=== PATIENT | male | born 1985 | race Two or more races ===

== ENCOUNTER 2025-05-08 15:42 | Emergency (ER) | payer MEDICAID, OTHER ==
[~2025-05-08] VITALS: Ht 185.4 cm; Wt 86.0 kg
[2025-05-08] MEDS: SODIUM CHLORIDE 0.9% 1,000 ML IVB ONE (16:15)
[2025-05-08 16:25] LABS: Hematocrit 41.0 % (41.0-53.0); Hemoglobin 14.1 g/dL (13.5-17.5); Mean Corpuscular Hemoglobin 28.7 pg (28.0-32.0); Mean Corpuscular Volume 83.3 fL (80.0-100.0); Nucleated Red Blood Cells % 0.0 %
[2025-05-08 16:37] LABS: Chloride 105 mmol/L (98-107); Potassium 3.8 mmol/L (3.5-5.1)
--- NOTE | 2025-05-08 16:37 | ED.PDOC ---
GI ASSESSMENT HPI Comments This is a 39 year old male presenting to the ED with chief complaint of abdominal pain. Patient reports that he has been experiencing epigastric abdominal pain for the past few days, believing that he is having a chronic pancreatitis flare up. Patient relays that he was seen at [facility], where labs and a CT confirmed chronic pancreatitis, but patient was sent home with pain medication. Patient states he has continued to experience pain since then, wanting to be placed on an NPO diet. 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 Patient denies any N/V/D, fever, or chills. Chief Complaint: Abdominal Pain Time Seen by MD: 16:34 Reviewed Notes: Nurses Notes, Medications, Allergies Allergies: Coded Allergies: Hydrocodone (Verified Allergy, Unknown, 05/08/25) Morphine (Verified Allergy, Unknown, 05/08/25) Naproxen (Verified Allergy, Unknown, 05/08/25) Information Source: Patient Mode of Arrival: Ambulatory Timing: Days Duration: Since onset Prehospital treatment: None Quality: Sharp Vomitus: None Stool: Normal Severity: Moderate Recent: None Recent Hx of: None Pain Location: Epigastric Modifying Factors: Nothing Associated sign and symptoms: Abdominal Pain Past Medical History Past Medical History (Other): Chronic pancreatitis Surgical History (Other): Pancreatic stent placement and removal Family History Family History: Reviewed,noncontributory to illness Social History Smoker: Non-Smoker Alcohol: Sober Drugs: Denies Drug Use Lives In: Home Constitutional: denies: chills, diaphoresis, fatigue, fever, malaise, sweats, weakness, others EENTM: denies: blurred vision, double vision, ear bleeding, ear discharge, ear drainage, ear pain, ear ringing, eye pain, eye redness, hearing loss, mouth pain, mouth swelling, nasal discharge, nose bleeding, nose congestion, nose pain, photophobia, tearing, throat pain, throat swelling, voice changes, others Respiratory: denies: cough, hemoptysis, orthopnea, SOB at rest, shortness of breath, SOB with excertion, stridor, wheezing, others Cardiovascular: denies: chest pain, dizzy spells, diaphoresis, Dyspnea on exertion, edema, irregular heart beat, left arm pain, lightheadedness, palpitations, PND, syncope, others Gastrointestinal: reports: abdominal pain; denies: abdomen distended, blood s treaked bowels, constipated, diarrhea, dysphagia, difficulty swallowing, hematemesis, melena, nausea, poor appetite, poor fluid intake, rectal bleeding, rectal pain, vomiting, others Genitourinary: denies: burning, dysuria, flank pain, frequency, hematuria, incontinence, penile discharge, penile sore, pain, testicle pain, testicle swelling, urgency, others Neurological: denies: dizziness, fainting, headache, left sided numbness, left sided weakness, numbness, paresthesia, pre-existing deficit, right sided numbness, right sided weakness, seizure, speech problems, tingling, tremors, weakness, others Musculoskeletal: denies: back pain, gout, joint pain, joint swelling, muscle pain, muscle stiffness, neck pain, others Integumetry: denies: bruises, change in color, change in hair/nails, dryness, laceration, lesions, lumps, rash, wounds, others Allergic/Immunocompromised: denies: Difficulty Healing, Frequent Infections, Hives, Itching, others Hematologic/Lymphatic: denies: anemia, blood clots, easy bleeding, easy bruising, swollen glands, others Endocrine: denies: excessive hunger, excessive sweating, excessive thirst, excessive urination, flushing, intolerance to cold, intolerance to heat, unexplained weight gain, unexplained weight loss, others Psychiatric: denies: anxiety, bipolar disorder, depression, hopeless, panic disorder, schizophrenia, sleepless, suicidal, others All Other Systems: Reviewed and Negative Physical Exam General Appearance: Moderate Distress, Normal HEENT: Normal ENT Inspection, PERRL/EOMI, Pharynx Normal, TMs Normal Neck: Full Range of Motion, Non-Tender, Normal, Normal Inspection Respiratory: Chest Non-Tender, Lungs Clear, No Accessory Muscle Use, No Respiratory Distress, Normal Breath Sounds Cardiovascular: No Edema, No JVD, No Murmur, No Gallop, Normal Peripheral Pulses, Regular Rate/Rhythm Breast Exam: Deferred Gastrointestinal: Diffuse, Epigastric, No Organomegaly, No Pulsatile Mass, Normal Bowel Sounds, Soft, Tenderness (Epigastric tenderness) Genitalia: Deferred Pelvic: Deferred Rectal: Deferred Extremities: No calf tenderness, Normal capillary refill, Normal inspection, Normal range of motion, Non-tender, No pedal edema Musculoskeletal : Apperance: Normal Neurologic: Alert, j2ee engineer II-XII nml as Tested, No Motor Deficits, Normal Affect, Normal Mood, No Sensory Deficits Cerebellar Function: Normal Reflexes: Normal Skin: Dry, Normal Color, Warm Peripheral Pulses: 1+ carotid (R), 1+ carotid (L) Lymphatic: No Adenopathy Was a procedure done? Was a procedure done?: No GI differential Dx Differential Diagnosis: Pancreatitis X-Ray, Labs, Meds, VS Vital Signs Date Time Temp Pulse Resp B/P (MAP) Pulse Ox O2 Delivery O2 Flow Rate FiO2 05/08/25 18:01 74 18 134/66 05/08/25 17:46 65 18 130/65 05/08/25 17:32 67 20 96 Room Air 05/08/25 17:32 98.7 67 20 130/65 (86) 96 98.7 05/08/25 15:43 98.4 91 18 127/76 96 98.4 Lab Test 05/08/25 16:15 Range/Units White Blood Count 12.9 H 4.4-10.8 10^3/uL Red Blood Count 4.92 4.5-5.90 10^6/uL Hemoglobin 14.1 13.5-17.5 g/dL Hematocrit 41.0 41.0-53.0 % Mean Corpuscular Volume 83.3 80.0-100.0 fL Mean Corpuscular Hemoglobin 28.7 28.0-32.0 pg Mean Corpuscular Hemoglobin Concent 34.4 32.0-36.0 g/dL Red Cell Distribution Width 14.2 11.8-14.3 % Platelet Count 201 140-450 10^3/uL Mean Platelet Volume 8.8 6.9-10.8 fL Neutrophils (%) (Auto) 91.2 H 37.0-80.0 % Lymphocytes (%) (Auto) 2.5 L 10.0-50.0 % Monocytes (%) (Auto) 5.8 0.0-12.0 % Eosinophils (%) (Auto) 0.1 0.0-7.0 % Basophils (%) (Auto) 0.4 0.0-2.0 % Neutrophils # (Auto) 11.8 H 1.6-8.6 10 ^3/uL Lymphocytes # (Auto) 0.3 L 0.4-5.4 10 ^3/uL Monocytes # (Auto) 0.7 0-1.3 10 ^3/uL Eosinophils # (Auto) 0 0-0.8 10 ^3/uL Basophils # (Auto) 0.1 0-0.2 10 ^3/uL Nucleated Red Blood Cells 0.0 % Sodium Level 136 136-145 mmol/L Potassium Level 3.8 3.5-5.1 mmol/L Chloride Level 105 98-107 mmol/L Carbon Dioxide Level 23 20-31 mmol/L Anion Gap 8 5-15 Blood Urea Nitrogen 12 9-23 mg/dL Creatinine 0.87 0.700-1.30 mg/dL Glomerular Filtration Rate Calc 113 >90 mL/min BUN/Creatinine Ratio 13.8 10.0-20.0 Serum Glucose 108 H 74-106 mg/dL Calcium Level 9.3 8.7-10.4 mg/dL Magnesium Level 1.9 1.6-2.6 mg/dL Lipase 250 H 12-53 U/L Current Medications Medications (Trade) Dose Ordered Sig/Brennan Route Start Time Stop Time Status Last Admin Metoclopramide HCl (Reglan Injection) 10 mg ONCE ONCE IV 05/08/25 16:15 05/08/25 16:16 DC 05/08/25 17:45 Sodium Chloride 1,000 ml @ 1,000 mls/hr Q1H ONCE IVB 05/08/25 16:15 05/08/25 17:14 DC 05/08/25 16:15 Hydromorphone HCl (Dilaudid Injection) 0.5 mg ONCE ONCE IV 05/08/25 16:15 05/08/25 16:16 DC 05/08/25 17:46 X-Ray, Labs, Meds, VS Comment Course in the emergency department patient came in complaining of severe abdominal pain has chronic pancreatitis with exacerbation which is two days started this morning went to another hospital which the treated treat him and released him and patient is not satisfied meclizine seen in pain is lipase was 799 In the ED the CBC 78460 with seven with 91% neutrophils H&H normal Blood sugar 946279 Lipase 250 Previously it was 799 Patient has pancreatitis acute exacerbation we will be admitted for hydration Patient requested to leave AMA Time of 1ST Reevaluation: 17:33 Reevaluation 1ST: Unchanged Patient Education/Counseling: Diagnosis, Treatment Family Education/Counseling: No Family Present SEPSIS Sepsis Screen Date sepsis recognized/suspect: May 08, 2025 Time Sepsis recognized/suspect: 1544 Recent Procedure: No On Antibiotic Therapy: No Respiratory Rate >20: No Heart Rate >90: Yes Temp<36 C (96.8 F) or >38.3 C: No SBP <90 or MAP <65 mmHG: No New Acute Mental Status Change: No Is the patient on CPAP, BIPAP,: No Physician Orders Heplock Iv (05/08/25 16:06) Vital Signs Date Time Temp Pulse Resp B/P (MAP) Pulse Ox O2 Delivery O2 Flow Rate FiO2 05/08/25 18:01 74 18 134/66 05/08/25 17:46 65 18 130/65 05/08/25 17:32 67 20 96 Room Air 05/08/25 17:32 98.7 67 20 130/65 (86) 96 98.7 05/08/25 15:43 98.4 91 18 127/76 96 98.4 Laboratory Tests Test 05/08/25 16:15 White Blood Count 12.9 10^3/uL (4.4-10.8) H Medications Medications Dose Ordered Sig/Brennan Route Start Time Stop Time Status Last Admin Dose Admin Hydromorphone HCl 0.5 mg ONCE ONCE IV 05/08/25 16:15 05/08/25 16:16 DC 05/08/25 17:46 Metoclopramide HCl 10 mg ONCE ONCE IV 05/08/25 16:15 05/08/25 16:16 DC 05/08/25 17:45 Sodium Chloride 1,000 ml @ 1,000 mls/hr Q1H ONCE IVB 05/08/25 16:15 05/08/25 17:14 DC 05/08/25 16:15 Departure 1 Departure Time of Disposition: 16:57 Impression: Primary Impression: Acute pancreatitis Qualified Codes: K85.20 - Alcohol induced acute pancreatitis without necrosis or infection Disposition: 02 SHORT TERM HOSPITAL Admit to: Med Surg Condition: Fair Critical Care Note Critical Care Time?: No Stability Stability form required: No Heart Score Heart Score: Heart Score Response (Comments) Value History N/A 0 EKG N/A 0 Age <45 0 Risk Factors 1 or 2 risk factors 1 Troponin N/A 0 Total 1 I personally scribed for LETI QUIÑONEZ MD ([email or web address]) on 05/08/25 at 16:37. Electronically submitted by Randall Sargent ([email or web address]). LETI QUIÑONEZ MD May 08, 2025 16:37
[2025-05-08 16:38] LABS: Anion Gap 8 (5-15); Calcium 9.3 mg/dL (8.7-10.4); Carbon Dioxide 23 mmol/L (20-31); Sodium 136 mmol/L (136-145)
[2025-05-08 16:43] LABS: BUN/Creatinine Ratio 13.8 (10.0-20.0); Blood Urea Nitrogen 12 mg/dL (9-23)
[2025-05-08 16:44] LABS: Glucose 108 mg/dL (74-106); Lipase 250 U/L (12-53); Magnesium 1.9 mg/dL (1.6-2.6)
[2025-05-08 17:32] VITALS: TEMP 98.7; O2SAT 96
[2025-05-08] MEDS: METOCLOPRAMIDE HCL 5MG/ml INJ 2ml VIAL IV ONE (17:45)
[2025-05-08] MEDS: HYDROmorphone HCL 2 MG/ML VL/or syr IV ONE (17:46)
[2025-05-08 18:01] VITALS: BP 134/66; PULSE 74; RESP 18
== END 2025-05-08 18:07 | disposition left against medical advice (07) ==
LOC: ER 15:42
DX: K85.90 Acute pancreatitis without necrosis or infection, unspecified (principal); K86.1 Other chronic pancreatitis; Z88.6 Allergy status to analgesic agent; Z88.5 Allergy status to narcotic agent
CPT/HCPCS: 36415; 80048; 83690; 83735; 85025; 96361; 96374; 96375; 99284; J1171; J2765; J7030